=== PATIENT | male | born 1965 | race African-American/Black ===

== ENCOUNTER 2021-11-11 09:37 | Emergency (ER) | payer SELFPAY ==
--- NOTE | ~2021-11-11 | XR_ITS ---
EXAMINATION: XR chest 1V portable DATE: 11/11/2021 11:12 INDICATION: Dizziness. TECHNIQUE: A single frontal view of the chest was obtained. COMPARISON: None. FINDINGS: The chest demonstrates clear lungs without pneumonia, pleural effusion, or pneumothorax. Th e heart size is normal. IMPRESSION: 1. No acute cardiopulmonary disease. Reviewed, dictated and finalized at location A. UT WORKER
--- NOTE | ~2021-11-11 | CT_ITS ---
EXAMINATION: CT brain wo con DATE: 11/11/2021 10:23 INDICATION: Dizziness. TECHNIQUE: Computed tomography (CT) of the head was performed without intravenous contrast. The mA wa s adjusted according to patient size. Iterative reconstruction technique was employed. The dose-lengt h product was 681.00 mGy-cm. COMPARISON: None FINDINGS: There is no intracranial hemorrhage, acute infarction, or abnormal intracranial mass lesion . The ventricles are normal in size. There is mild mucosal thickening in the paranasal sinuses. The o rbits are normal. The mastoid air cells are normal. IMPRESSION: 1. Normal brain. Reviewed, dictated and finalized at location A. OFFICER IMPRESSION: 1. Normal brain.
[2021-11-11 09:44] VITALS: BP 126/97; PULSE 79; RESP 16; TEMP 36.6; O2SAT 96
--- NOTE | 2021-11-11 10:07 | ECG_ITS ---
Measurements Intervals [place] Rate: 71 P: 41 UT: 179 QRS: 20 QRSD: 93 T: 22 QT: 388 QTc: 422 Interpretive Statements SINUS RHYTHM MODERATE VOLTAGE CRITERIA FOR LVH, CONSIDER NORMAL VARIANT [MEETS CRITERIA IN ONE OF: R(aVL), S(V1), R(V5), R(V5/V6)+S(V1)] BORDERLINE ECG NO PREVIOUS ECG AVAILABLE FOR COMPARISON Electronically Signed On 11-11-2021 11:11:37 LINK MACHINE OPERATOR by Jamie Christopher M.D.
--- NOTE | 2021-11-11 10:09 | ED.RECABL ---
HPI - Recheck/Abnormal Lab/Rx General Chief Complaint: Recheck/Abnormal Lab/Rx Stated Complaint: high BP, out of meds Time Seen by Provider: 11/11/21 09:45 Source: patient Mode of arrival: ambulatory Limitations: no limitations History of Present Illness HPI narrative: This is a 56-year-old male that presents to the emergency department for medication refill. Reports he has been out of his medicines for a while as he recently moved here. He has not established with a primary care doctor. He is on several antihypertensives that he is needing a refill for. He also would like his mirtazapine refilled that he takes for sleep. He needs referral to a PCP. He does report some intermittent dizziness. Otherwise denies chest pain, shortness of breath, headaches, numbness or weakness. Related Data Allergies Allergy/AdvReac Type Severity Reaction Status Date / Time No Known Allergies Allergy Verified 11/11/21 09:52 Review of Systems Review of Systems: CONSTITUTIONAL: Denies fever CARDIOVASCULAR: Denies chest pain, or edema. RESPIRATORY: Denies dyspnea. MUSCULOSKELETAL: Reports joint pain, and myalgia. NEUROLOGIC: Denies headache, numbness, or weakness. All systems reviewed & are unremarkable except as noted in HPI and below PMFSH Past Medical History Medical History (Updated 11/11/21 @ 11:29 by Yina Christie PA-C) History of hypertension Social History Social History (Updated 11/11/21 @ 10:11 by Yina Christie PA-C) Smoking status: Never smoker Exam Narrative: GENERAL: Well-appearing, well-nourished, and in no acute distress. HEAD: Normocephalic, atraumatic. EYES: PERRLA and EOMI. ENT: Nares clear, no rhinorrhea or epistaxis. Mucous membranes moist. Oropharynx without tonsillar hypertrophy exudate or other lesions. Bilateral TMs pearly duarte non-bulging NECK: Supple. No adenopathy or masses. CHEST: Clear to auscultation. No respiratory distress. No wheezes rales or rhonchi HEART: Regular rate and rhythm. No murmur heard. Normal peripheral pulses. EXTREMITIES: Normal range of motion. No edema. SKIN: Warm, dry, no rash. NEURO: No focal deficits. Alert and oriented x3. Cranial nerves II through XII grossly intact PSYCH: Normal mood and affect Course Vital Signs Vital signs: Vital Signs Temperature 98 F 11/11/21 09:44 Pulse Rate 79 11/11/21 09:44 Respiratory Rate 16 11/11/21 09:44 Blood Pressure 126/97 H 11/11/21 09:44 Pulse Oximetry 96 11/11/21 09:44 Temperature 98 F 11/11/21 09:44 Pulse Rate 75 11/11/21 10:31 Respiratory Rate 14 11/11/21 10:31 Blood Pressure 131/80 11/11/21 10:30 Pulse Oximetry 97 11/11/21 10:31 MDM - Recheck/Abnormal Lab/Rx MDM Narrative Medical decision making narrative: Patient presents to the emergency department for medication refill. Recently moved to the area. Needing refills on his blood pressure medication. Also reports he takes mirtazapine nightly for sleep. Reporting mostly some intermittent dizziness noted with his blood pressure. Blood pressure here today has looked good. He has been in the 120s-130s systolic. Diastolic is a little elevated in the 90s. He is neurologically intact. CBC and metabolic panel without concerning findings. EKG without acute changes and baseline troponin is negative. CT scan of the brain is normal. Chest x-ray without acute cardiopulmonary abnormality. Patient instructed to continue to monitor his blood pressure at home. Will be given refill of his blood pressure medications and his mirtazapine. Instructed on importance of getting into a primary care doctor for further evaluation and management. He was given warnings to return to the ER Lab Data Attestation: I reviewed the patient's lab results. Result diagrams: 11/11/21 10:28 11/11/21 10:28 Labs: Lab Results 11/11/21 11/11/21 Range/Units 10:28 10:28 WBC 3.7 L (4.5-10.0) K/mm3 RBC 4.86 (4.6-6.20) M/mm3 Hgb 1
[2021-11-11 10:25] VITALS: PULSE 71; RESP 13
[2021-11-11 10:30] VITALS: BP 131/80; PULSE 80; RESP 21; O2SAT 96
[2021-11-11 10:31] VITALS: PULSE 75; RESP 14; O2SAT 97
[2021-11-11 10:35] LABS: Basophils Percent Auto 0.8 % (0.2-1.2); Eosinophils Absolute Auto 0.2 K/mm3 (0-0.3); Eosinophils Percent Auto 4.3 % (0-4.4); Hematocrit 46.3 % (42.0-52.0); Hemoglobin 15.1 g/dL (14.0-18.0); Immature Granulocyte Absolute 0.01 K/mm3 (0.00-0.031); Immature Granulocyte Percent A 0.3 % (0-0.5); Lymphocytes Absolute Auto 1.87 K/mm3 (0.9-3.2); Lymphocytes Percent Auto 50.7 % (18.3-44.2); Mean Corpuscular HGB Conc 32.6 g/dl (32-36); Mean Corpuscular Hemoglobin 31.1 pg (26-34); Mean Corpuscular Volume 95.3 fl (80-100); Mean Platelet Volume 9.4 fl (7.4-10.4); Monocytes Absolute Auto 0.5 K/mm3 (0.1-0.6); Monocytes Percent Auto 14.6 % (2.6-8.5); Neutrophils Absolute Auto 1.1 K/mm3 (1.3-6.7); Neutrophils Percent Auto 29.3 % (45.5-73.1); Platelet Count Result 240 k/mm3 (150-375); Red Blood Count 4.86 M/mm3 (4.6-6.20); White Blood Count 3.7 K/mm3 (4.5-10.0)
[2021-11-11 10:43] LABS: Anion Gap 5 mmol/L (8-16); Blood Urea Nitrogen 14 mg/dL (9-20); Calcium 9.4 mg/dL (8.4-10.2); Carbon Dioxide 29 mmol/L (22-30); Chloride 109 mmol/L (98-107); Estimated CRCL calculation 76 ml/min; Estimated Glomerular Filt Rate > 60; Glucose 136 mg/dL (65-110); Potassium 3.4 mmol/L (3.4-5.0); Sodium 143 mmol/L (137-145)
[2021-11-11 10:55] LABS: Troponin I < 0.012 ng/mL (0.000-0.034)
[2021-11-11 11:42] VITALS: BP 139/88; PULSE 67; RESP 16; O2SAT 98
== END 2021-11-11 11:43 | disposition home or self-care (01) ==
PROVIDERS: Physician Assistant; Emergency Provider Emergency Medicine
DX: I10 Essential (primary) hypertension (principal); R42 Dizziness and giddiness
CPT/HCPCS: 36415; 70450; 71045; 80048; 84484; 85025; 93005; 99284

== ENCOUNTER 2022-01-10 09:20 | Emergency (ER) | payer OTHER, SELFPAY ==
[2022-01-10] VITALS (11 sets, daily range): BP systolic 132–147; BP diastolic 94–116; PULSE 78; RESP 16–18; O2SAT 97–100
--- NOTE | 2022-01-10 09:30 | PC.NURSE ---
This RN entered patient's room to complete triage process but patient was on the phone and asked this nurse to give me a minute .
--- NOTE | 2022-01-10 09:58 | ECG_ITS ---
Measurements Intervals [place] Rate: 63 P: 54 DE: 174 QRS: 22 QRSD: 89 T: 5 QT: 377 QTc: 387 Interpretive Statements SINUS RHYTHM VOLTAGE CRITERIA FOR LVH BORDERLINE T WAVE ABNORMALITY- INFERIOR LEADS BORDERLINE ECG Electronically Signed On 01-10-2022 12:30:27 CDT by Héctor Ritchie D.O.
--- NOTE | 2022-01-10 09:58 | ED.GENADULT ---
HPI - General Adult General Chief complaint: Unspecified Stated complaint: ESIPNOZA, run down, out of BP meds Time Seen by Provider: 01/10/22 09:45 Source: patient Mode of arrival: ambulatory Limitations: no limitations History of Present Illness HPI narrative: Pt feeling a bit fatigued and run down. Pt has been without BP meds of awhile and has not been able to get a PCP because of his insurance status and has just moved to the area. Pt now has medical card and would like a PCP and his meds filled. Pt denies CP or SOB or one sided weakness. Related Data Allergies Allergy/AdvReac Type Severity Reaction Status Date / Time No Known Allergies Allergy Verified 11/11/21 09:52 Review of Systems Review of Systems: All systems reviewed & are unremarkable except as noted in HPI and below PMFSH Past Medical History Medical History (Updated 01/10/22 @ 12:27 by Rod Rossi III, DO) History of hypertension Social History Social History (Updated 11/11/21 @ 10:11 by Yina Christie PA-C) Smoking status: Never smoker Exam Const: General: cooperative, healthy appearing and comfortable Nutritional Appearance: average body habitus Orientation/consciousness: oriented to person HENMT: Head: normal to inspection Mouth: Yes Normal oral and palatal mucosa present Neck: Neck: normal visual inspection Chest: Chest palpation & inspection: normal inspection of the chest Resp: Effort & Inspection: normal respiratory effort and able to speak in complete sentences Auscultation: clear to auscultation bilaterally Cardio: Jugular venous distension: no JVD Rate: regular rate Rhythm: regular rhythm GI: Inspection: normal to inspection GI Palp: Yes Soft to palpation Percussion: Yes normal to percussion Auscultation: normal bowel sounds Skin: General skin exam: normal color Neuro: General: oriented to person, patient oriented x3, no meningeal signs, no focal motor deficits and CN's II-XI intact bilaterally Extrem: General: normal to inspection, full ROM, capillary refill normal and no clubbing, cyanosis or edema Psych: Appearance: grossly normal Mental Status: mental status grossly normal Speech and movement: Normal speech and movement present and Clear speech present Affect: normal affect Course Vital Signs Vital signs: Vital Signs Pulse Rate 78 01/10/22 09:55 Respiratory Rate 18 01/10/22 09:55 Blood Pressure 142/97 H 01/10/22 09:55 Pulse Oximetry 99 01/10/22 09:55 Pulse Rate 78 01/10/22 09:55 Respiratory Rate 16 01/10/22 12:43 Blood Pressure 132/94 H 01/10/22 12:43 Pulse Oximetry 98 01/10/22 12:43 Medical Decision Making Vital Signs Vital Signs: Vital Signs Pulse Rate 78 01/10/22 09:55 Respiratory Rate 18 01/10/22 09:55 Blood Pressure 142/97 H 01/10/22 09:55 Pulse Oximetry 99 01/10/22 09:55 Pulse Rate 78 01/10/22 09:55 Respiratory Rate 16 01/10/22 12:43 Blood Pressure 132/94 H 01/10/22 12:43 Pulse Oximetry 98 01/10/22 12:43 Lab Data Result diagrams: 01/10/22 10:24 01/10/22 10:24 Labs: Lab Results 01/10/22 01/10/22 Range/Units 10:24 10:24 WBC 3.2 L (4.5-10.0) K/mm3 RBC 5.39 (4.6-6.20) M/mm3 Hgb 16.2 (14.0-18.0) g/dL Hct 50.4 (42.0-52.0) % MCV 93.5 (80-100) fl MCH 30.1 (26-34) pg MCHC 32.1 (32-36) g/dl RDW 13.2 (11.5-14.5) % Plt Count 208 (150-375) k/mm3 MPV 9.3 (7.4-10.4) fl Immature Gran % (Auto) 0.3 (0-0.5) % Neut % (Auto) 23.2 L (45.5-73.1) % Lymph % (Auto) 61.7 H (18.3-44.2) % [place] % (Auto) 12.3 H (2.6-8.5) % Eos % (Auto) 1.9 (0-4.4) % Baso % (Auto) 0.6 (0.2-1.2) % Lymph # (Auto) 2.00 (0.9-3.2) K/mm3 [place] # (Auto) 0.4 (0.1-0.6) K/mm3 Eos # (Auto) 0.1 (0-0.3) K/mm3 Baso # (Auto) 0.0 (0.0-0.1) K/mm3 Abs Immat Gran (auto) 0.01 (0.00-0.031) K/mm3 Absolute Neuts (auto) 0.8 L (1.3-6.7) K/mm3 Absolute Nucleated RBC 0.0
[2022-01-10 10:29] LABS: Basophils Percent Auto 0.6 % (0.2-1.2); Eosinophils Absolute Auto 0.1 K/mm3 (0-0.3); Eosinophils Percent Auto 1.9 % (0-4.4); Hematocrit 50.4 % (42.0-52.0); Hemoglobin 16.2 g/dL (14.0-18.0); Immature Granulocyte Absolute 0.01 K/mm3 (0.00-0.031); Immature Granulocyte Percent A 0.3 % (0-0.5); Lymphocytes Percent Auto 61.7 % (18.3-44.2); Mean Corpuscular HGB Conc 32.1 g/dl (32-36); Mean Corpuscular Hemoglobin 30.1 pg (26-34); Mean Corpuscular Volume 93.5 fl (80-100); Mean Platelet Volume 9.3 fl (7.4-10.4); Monocytes Absolute Auto 0.4 K/mm3 (0.1-0.6); Monocytes Percent Auto 12.3 % (2.6-8.5); Neutrophils Absolute Auto 0.8 K/mm3 (1.3-6.7); Neutrophils Percent Auto 23.2 % (45.5-73.1); Platelet Count Result 208 k/mm3 (150-375); Red Blood Count 5.39 M/mm3 (4.6-6.20); Red Cell Distribution Width 13.2 % (11.5-14.5); White Blood Count 3.2 K/mm3 (4.5-10.0)
[2022-01-10 10:40] LABS: Alanine Aminotransferase 28 U/L (4-50); Albumin Level 3.9 g/dL (3.5-5.1); Alkaline Phosphatase 153 U/L (38-126); Anion Gap 2 mmol/L (8-16); Aspartate Amino Transferase 28 U/L (17-59); Bilirubin,Total 0.4 mg/dL (0.2-1.3); Blood Urea Nitrogen 13 mg/dL (9-20); Calcium 9.2 mg/dL (8.4-10.2); Carbon Dioxide 30 mmol/L (22-30); Chloride 109 mmol/L (98-107); Estimated CRCL calculation 67 ml/min; Estimated Glomerular Filt Rate > 60; Glucose 99 mg/dL (65-110); Potassium 3.9 mmol/L (3.4-5.0); Sodium 141 mmol/L (137-145)
--- NOTE | 2022-01-10 11:13 | PC.NURSE ---
Patient report given to KINZA Eason. All questions answered and care of pt transferred.
== END 2022-01-10 12:34 | disposition home or self-care (01) ==
PROVIDERS: Emergency Provider Emergency Medicine
DX: I10 Essential (primary) hypertension (principal); R94.31 Abnormal electrocardiogram [ECG] [EKG]
CPT/HCPCS: 36415; 80053; 85025; 93005; 99283

== ENCOUNTER → 2022-01-29 14:56 | Outpatient (CLI) | payer OTHER, SELFPAY ==
--- NOTE | ~2022-01-29 | XR_ITS ---
EXAMINATION: XR chest 2V 01/29/2022 15:19 INDICATION: Chest pain PROCEDURE: 2 view chest COMPARISON: 11/11/2021 FINDINGS: The lungs are clear. The cardiomediastinal silhouette is within normal limits. There are no pleural effusions. There is no pneumothorax suspected. IMPRESSION: 1: NO ACUTE CARDIOPULMONARY DISEASE. Reviewed, dictated and finalized at location A.
--- NOTE | ~2022-01-29 | XR_ITS ---
EXAM: XR ankle LT min 3V DATE: 01/29/2022 15:20 HISTORY: PAIN . COMPARISON: None available. FINDINGS: Limited lateral view. Venous varicosities. Normal mineralization. No fracture or dislocati on. Old medial malleolus fracture fragment. Degenerative changes in the tibiotalar articulation and m idfoot. Plantar enthesopathy. IMPRESSION: No acute osseous finding in the left ankle. Chronic findings detailed above. Reviewed, dictated and finalized at location K. IMPRESSION: No acute osseous finding in the left ankle. Chronic findings detail ed above.
--- NOTE | ~2022-01-29 | XR_ITS ---
EXAM: XR lumbar spine 2-3V DATE: 01/29/2022 15:20 HISTORY: PAIN . COMPARISON: None available. FINDINGS: 5 nonrib-bearing lumbar-type vertebral bodies. Pedicles intact. Mild lumbar scoliosis. Melva tebral body alignment is intact. Vertebral body heights are preserved. Multilevel disc space narrowin g and marginal osteophytosis from L2 through L5. Sclerosis of lower lumbar facets. No fracture or dis location. IMPRESSION: Multilevel moderate degenerative disc disease and mild facet arthropathy. Reviewed, dictated and finalized at location K. IMPRESSION: Multilevel moderate degenerative disc disease and mild facet arthro oneyda.
--- NOTE | ~2022-01-29 | XR_ITS ---
XR knee RT min 4V 01/29/2022 15:20 Indication: Right knee pain Procedure: 4 views right knee Comparison: No prior studies for comparison. Findings: No fracture, subluxation or dislocation. There is mild tricompartment osteoarthritis of the right knee. No significant joint effusion. No foreign body. Impression: 1: Mild osteoarthritis of the right knee. Reviewed, dictated and finalized at location A. Impression: 1: Mild osteoarthritis of the right knee.
== END ==
PROVIDERS: PCP Emergency Medicine; Visit Provider Emergency Medicine
DX: M54.50 Low back pain, unspecified (principal); M25.561 Pain in right knee; M25.572 Pain in left ankle and joints of left foot; M51.36 Other intervertebral disc degeneration, lumbar region; M17.11 Unilateral primary osteoarthritis, right knee
CPT/HCPCS: 71046; 72100; 73564; 73610